=== PATIENT | male | born 1985 | race Two or more races ===

== ENCOUNTER 2022-06-04 00:48 | Emergency (ER) | payer MEDICAID ==
[~2022-06-04] VITALS: Ht 170.2 cm; Wt 87.3 kg
[2022-06-04] MEDS ORDERED: IBUPROFEN 600 MG TABLET PO ONE (01:30)
[2022-06-04] MEDS ORDERED: IBUP-2070 PO (02:22)
[2022-06-04 02:51] VITALS: BP 128/88
== END 2022-06-04 03:00 | disposition home or self-care (01) ==
LOC: EMS 00:53
DX: S93.401A Sprain of unspecified ligament of right ankle, initial encounter (principal); W01.0XXA Fall on same level from slipping, tripping and stumbling without subsequent striking against object, initial encounter; Y93.89 Activity, other specified; Y92.89 Other specified places as the place of occurrence of the external cause; Y99.8 Other external cause status
CPT/HCPCS: 29540; 99283